=== PATIENT | male | born 1930 | race Caucasian/White ===

== ENCOUNTER → 2016-12-30 | Outpatient (CLI) | payer MEDICARE ==
[~2016-12-30] MED LIST: ASPIRIN CHEWABL81 MG PO; CITALOPRAM HBR20 MG PO; COREG 25MG TAB25 MG PO; FLOMAX 0.4 MG0.4 MG PO; FUROSEMIDE20 MG PO; HYDRALAZINE HCL50 MG PO; HYDROCHLOROTHIA25 MG PO; HYDROXYZINE HCL50 MG PO; LEVOTHYROXINE50 MCG PO; LORTAB 5-325 M1 EACH PO; NORCO 5-325 TA1 EACH PO; NORCO 7.5-3251 EACH PO; PANTOPRAZOLE SO40 MG PO; POTASSIUM CHLO10 ME1 PO; PRAVASTATIN SOD10 MG PO; XARELTO15 MG PO; ZOLPIDEM TARTRAT5 MG PO
== END ==
LOC: EXRD 08:00
DX: M81.0 Age-related osteoporosis without current pathological fracture (principal)
CPT/HCPCS: 77080